=== PATIENT | female | born 1970 | race Caucasian/White ===

== ENCOUNTER 2017-07-05 19:48 | Inpatient (IN) | payer BC, OTHER ==
[2017-07-05] MEDS ORDERED: ALBUTEROL NEBULIZED 2.5 MG/3 ML INHALATION STA (19:58)
[2017-07-05] MEDS ORDERED: SODIUM CHLORIDE 0.9% 1,000 ML IV STA (20:06)
[2017-07-05] MEDS ORDERED: methylPREDNISolone SOD SUCCI 125 MG/2 ML VIAL IV STA ×2 (20:06)
[2017-07-05] MEDS ORDERED: IPRATROPIUM-ALBUTEROL 3 ML NEB INHALATION STA ×2 (20:06→20:22)
[2017-07-05] MEDS ORDERED: MAGNESIUM SULFATE-D5W PMX 2 GM in DEXTROSE/WATER 1 100ML.BAG IVPB STA (20:06)
[2017-07-05] MEDS ORDERED: LORazepam 2 MG/ML INJ IV STA (20:09)
[2017-07-05] MEDS: MAGNESIUM SULFATE-D5W PMX 1 GM in DEXTROSE/WATER 1 100ML.BAG IVPB SCH ×2 (20:11→21:14)
[2017-07-05 20:19] LABS: Basophils # (A) 0.1 k/uL (0-0.2); Basophils % (A) 1 %; Eosinophils # (A) 0.3 k/uL (0-0.7); Eosinophils % (A) 3 %; HCT 38.5 % (34.0-46.0); HGB 11.7 gm/dL (11.4-16.0); Hypochromasia Marked; Lymphocytes # (A) 1.4 k/uL (1.0-4.8); Lymphocytes % (A) 11 %; MCH 22.4 pg (25.0-35.0); MCHC 30.3 g/dL (31.0-37.0); MCV 73.8 fL (80.0-100.0); Microcytosis Slight; Monocytes # (A) 0.6 k/uL (0-1.0); Monocytes % (A) 5 %; Neutrophils # (A) 10.1 k/uL (1.3-7.7); Neutrophils % (A) 80 %; Platelet Count 378 k/uL (150-450); Poikilocytosis Slight; RBC 5.22 m/uL (3.80-5.40); RDW 15.7 % (11.5-15.5); WBC 12.7 k/uL (3.8-10.6)
--- NOTE | 2017-07-05 20:24 | ED ---
SOB HPI - General Chief Complaint: Shortness of Breath Stated Complaint: IDA Time Seen by Provider: 07/05/17 19:59 Source: patient, RN notes reviewed Mode of arrival: ambulatory Limitations: no limitations - History of Present Illness Initial Comments: This is a 46-year-old female history of asthma who is a former smoker who quit 5 years ago states she's been having difficulty breathing since yesterday. Is got progressively worse today with minimal to no improvement with her updrafts and inhalers. She denies any overt chest pain but does complain some tightness no overt fevers chills sweats cough or phlegm production this shortness of breath exertional dyspnea. No peripheral edema. No trauma reported. MD Complaint: shortness of breath - Related Data Home Medications Medication Instructions Recorded Confirmed Albuterol Sulfate [Proventil Hfa] 1 - 2 puff INHALATION Q6H PRN 11/09/13 Previous Rx's Medication Instructions Recorded Clindamycin HCl 300 mg PO Q6HR #40 cap 11/09/13 Allergies Allergy/AdvReac Type Severity Reaction Status Date / Time erythromycin base Allergy Rapid Verified 07/05/17 19:53 [Erythromycin Base] Heart Rate ibuprofen Allergy Rapid Verified 07/05/17 19:53 Heart Rate Penicillins Allergy Rash/Hives Verified 07/05/17 19:53 Sulfa (Sulfonamide Allergy Rash/Hives Verified 07/05/17 19:53 Antibiotics) Review of Systems ROS Statement: Those systems with pertinent positive or pertinent negative responses have been documented in the HPI. ROS Other: All systems not noted in ROS Statement are negative. Past Medical History Past Medical History: Asthma History of Any Multi-Drug Resistant Organisms: None Reported Past Surgical History: Section Past Psychological History: Depression Smoking Status: Former smoker Past Alcohol Use History: None Reported Past Drug Use History: None Reported General Exam - General Exam Comments Initial Comments: This is a well-developed well-nourished awake alert oriented 3 female in obvious respiratory distress Limitations: no limitations General appearance: alert, anxious, in distress Head exam: Present: atraumatic, normocephalic, normal inspection Eye exam: Present: normal appearance, PERRL, EOMI. Absent: scleral icterus, conjunctival injection, periorbital swelling ENT exam: Present: mucous membranes dry Neck exam: Present: normal inspection. Absent: tenderness, meningismus, lymphadenopathy Respiratory exam: Present: respiratory distress, wheezes, accessory muscle use, decreased breath sounds. Absent: rales, rhonchi, stridor Cardiovascular Exam: Present: normal rhythm, tachycardia, normal heart sounds. Absent: systolic murmur, diastolic murmur, rubs, gallop, clicks GI/Abdominal exam: Present: soft, normal bowel sounds. Absent: distended, tenderness, guarding, rebound, rigid Extremities exam: Present: normal inspection, full ROM, normal capillary refill. Absent: tenderness, pedal edema, joint swelling, calf tenderness Back exam: Present: normal inspection Neurological exam: Present: alert, oriented X3, CN II-XII intact Psychiatric exam: Present: normal affect, anxious Skin exam: Present: warm, dry, intact, normal color. Absent: rash Course Vital Signs 07/05/17 07/05/17 07/05/17 19:51 20:09 20:12 Temperature 100.0 F H Pulse Rate 115 H 110 H 111 H Respiratory 34 H 40 H Rate Blood Pressure 165/87 219/113 O2 Sat by Pulse 91 L 96 Oximetry 07/05/17 07/05/17 07/05/17 20:24 20:25 20:32 Temperature Pulse Rate 114 H 114 H 119 H Respiratory 30 H Rate Blood Pressure 162/99 O2 Sat by Pulse 100 Oximetry 07/05/17 21:15 Temperature 99.4 F Pulse Rate 106 H Respiratory 34 H Rate Blood Pressure 131/73 O2 Sat by Pulse 100 Oximetry - Reevaluation(s) Reevaluation #1: 07/05/17 20:22 Initial reevaluation reveals her blood pressure is improved to 162/99 she is markedly increased wheezing which does indicate increased aeration. Chest x- ray was just performed shows no definite evidence of infiltrate no pneumothorax the mediastinum is within normal limits. Reevaluation #2: 07/05/17 21:40 The patient further examination is much improved with increased aeration and diminished wheezing she feels much improved her blood pressure is becoming more normalized. Medical Decision Making - Medical Decision Making I did discuss Pfizer the patient family members were present patient be admitted for continued inpatient treatment she is ready a remarkably improved but still requires further treatment I did discuss the case with Jesse from the hospitalist group Dr. Paris's group will be consulted - Lab Data Result diagrams: 07/05/17 20:05 07/05/17 20:05 Lab Results 07/05/17 07/05/17 07/05/17 Range/Units 20:05 20:05 20:05 WBC 12.7 H (3.8-10.6) k/uL RBC 5.22 (3.80-5.40) m/uL Hgb 11.7 (11.4-16.0) gm/dL Hct 38.5 (34.0-46.0) % MCV 73.8 L (80.0-100.0) fL MCH 22.4 L (25.0-35.0) pg MCHC 30.3 L (31.0-37.0) g/dL RDW 15.7 H (11.5-15.5) % Plt Count 378 (150-450) k/uL Neutrophils % 80 % Lymphocytes % 11 % Monocytes % 5 % Eosinophils % 3 % Basophils % 1 % Neutrophils # 10.1 H (1.3-7.7) k/uL Lymphocytes # 1.4 (1.0-4.8) k/uL Monocytes # 0.6 (0-1.0) k/uL Eosinophils # 0.3 (0-0.7) k/uL Basophils # 0.1 (0-0.2) k/uL Hypochromasia Marked Poikilocytosis Slight Microcytosis Slight PT (9.0-12.0) sec INR (<1.2) APTT (22.0-30.0) sec D-Dimer (<0.60) mg/L FEU Sodium 141 (137-145) mmol/L Potassium 4.0 (3.5-5.1) mmol/L Chloride 102 (98-107) mmol/L Carbon Dioxide 24 (22-30) mmol/L Anion Gap 15 mmol/L BUN 10 (7-17) mg/dL Creatinine 0.60 (0.52-1.04) mg/dL Est GFR (CKD-EPI)AfAm >90 (>60 ml/min/1.73 sqM) Est GFR (CKD-EPI)NonAf >90 (>60 ml/min/1.73 sqM) Glucose 118 H (74-99) mg/dL Plasma Lactic Acid Adrian (0.7-2.0) mmol/L Calcium 9.7 (8.4-10.2) mg/dL Magnesium 2.0 (1.6-2.3) mg/dL Total Bilirubin 0.5 (0.2-1.3) mg/dL AST 26 (14-36) U/L ALT 27 (9-52) U/L Alkaline Phosphatase 103 (38-126) U/L Total Creatine Kinase 79 (30-135) U/L CK-MB (CK-2) 1.1 (0.0-2.4) ng/mL CK-MB (CK-2) Rel Index 1.4 Troponin I <0.012 (0.000-0.034) ng/mL NT-Pro-B Natriuret Pep pg/mL Total Protein 8.2 (6.3-8.2) g/dL Albumin 4.5 (3.5-5.0) g/dL Influenza Type A RNA (Not Detectd) Influenza Type B (PCR) (Not Detectd) 07/05/17 07/05/17 07/05/17 Range/Units 20:05 20:05 20:05 WBC (3.8-10.6) k/uL RBC (3.80-5.40) m/uL Hgb (11.4-16.0) gm/dL Hct (34.0-46.0) % MCV (80.0-100.0) fL MCH (25.0-35.0) pg MCHC (31.0-37.0) g/dL RDW (11.5-15.5) % Plt Count (150-450) k/uL Neutrophils % % Lymphocytes % % Monocytes % % Eosinophils % % Basophils % % Neutrophils # (1.3-7.7) k/uL Lymphocytes # (1.0-4.8) k/uL Monocytes # (0-1.0) k/uL Eosinophils # (0-0.7) k/uL Basophils # (0-0.2) k/uL Hypochromasia Poikilocytosis Microcytosis PT 9.7 (9.0-12.0) sec INR 1.0 (<1.2) APTT 22.1 (22.0-30.0) sec D-Dimer 0.50 (<0.60) mg/L FEU Sodium (137-145) mmol/L Potassium (3.5-5.1) mmol/L Chloride (98-107) mmol/L Carbon Dioxide (22-30) mmol/L Anion Gap mmol/L BUN (7-17) mg/dL Creatinine (0.52-1.04) mg/dL Est GFR (CKD-EPI)AfAm (>60 ml/min/1.73 sqM) Est GFR (CKD-EPI)NonAf (>60 ml/min/1.73 sqM) Glucose (74-99) mg/dL Plasma Lactic Acid Adrian 1.5 (0.7-2.0) mmol/L Calcium (8.4-10.2) mg/dL Magnesium (1.6-2.3) mg/dL Total Bilirubin (0.2-1.3) mg/dL AST (14-36) U/L ALT (9-52) U/L Alkaline Phosphatase (38-126) U/L Total Creatine Kinase (30-135) U/L CK-MB (CK-2) (0.0-2.4) ng/mL CK-MB (CK-2) Rel Index Troponin I (0.000-0.034) ng/mL NT-Pro-B Natriuret Pep 65 pg/mL Total Protein (6.3-8.2) g/dL Albumin (3.5-5.0) g/dL Influenza Type A RNA (Not Detectd) Influenza Type B (PCR) (Not Detectd) 07/05/17 Range/Units 20:30 WBC (3.8-10.6) k/uL RBC (3.80-5.40) m/uL Hgb (11.4-16.0) gm/dL Hct (34.0-46.0) % MCV (80.0-100.0) fL MCH (25.0-35.0) pg MCHC (31.0-37.0) g/dL RDW (11.5-15.5) % Plt Count (150-450) k/uL Neutrophils % % Lymphocytes % % Monocytes % % Eosinophils % % Basophils % % Neutrophils # (1.3-7.7) k/uL Lymphocytes # (1.0-4.8) k/uL Monocytes # (0-1.0) k/uL Eosinophils # (0-0.7) k/uL Basophils # (0-0.2) k/uL Hypochromasia Poikilocytosis Microcytosis PT (9.0-12.0) sec INR (<1.2) APTT (22.0-30.0) sec D-Dimer (<0.60) mg/L FEU Sodium (137-145) mmol/L Potassium (3.5-5.1) mmol/L Chloride (98-107) mmol/L Carbon Dioxide (22-30) mmol/L Anion Gap mmol/L BUN (7-17) mg/dL Creatinine (0.52-1.04) mg/dL Est GFR (CKD-EPI)AfAm (>60 ml/min/1.73 sqM) Est GFR (CKD-EPI)NonAf (>60 ml/min/1.73 sqM) Glucose (74-99) mg/dL Plasma Lactic Acid Adrian (0.7-2.0) mmol/L Calcium (8.4-10.2) mg/dL Magnesium (1.6-2.3) mg/dL Total Bilirubin (0.2-1.3) mg/dL AST (14-36) U/L ALT (9-52) U/L Alkaline Phosphatase (38-126) U/L Total Creatine Kinase (30-135) U/L CK-MB (CK-2) (0.0-2.4) ng/mL CK-MB (CK-2) Rel Index Troponin I (0.000-0.034) ng/mL NT-Pro-B Natriuret Pep pg/mL Total Protein (6.3-8.2) g/dL Albumin (3.5-5.0) g/dL Influenza Type A RNA Not Detected (Not Detectd) Influenza Type B (PCR) Not Detected (Not Detectd) - EKG Data -: EKG Interpreted by Me (Sinus tachycardia with a rate of 111. Interval 182 QRS duration 68 daily s) - Radiology Data Radiology results: image reviewed (Review the x-ray shows no definite acute evidence of infiltrate no pneumothorax mediastinum normal) Critical Care Time Critical Care Time: Yes Critical Care Time: 37 minutes of critical care time which includes initial presentation with history physical labs x-rays constant bedside attention for the first approximately 15-20 minutes. Multiple re-evaluations patient. Discussed with the patient family regarding findings discussed with the [facility] service admission orders and documentation of the above. Disposition Clinical Impression: Asthma with status asthmaticus, Adult respiratory distress syndrome, Acute respiratory failure, Febrile illness, acute, Single episode of hypertension Disposition: ADMITTED IP TO THIS HOSP Condition: Stable Referrals: None,Stated [REFERRING] - 1-2 days
[2017-07-05] MEDS ORDERED: TERBUTALINE 1 MG/ML VIAL SQ STA (20:26)
[2017-07-05 20:28] LABS: D-Dimer 0.5 mg/L FEU (<0.60)
[2017-07-05 20:30] LABS: ALT 27 U/L (9-52); AST 26 U/L (14-36); Albumin 4.5 g/dL (3.5-5.0); Alkaline Phosphatase 103 U/L (38-126); Anion Gap 15 mmol/L; Blood Urea Nitrogen 10 mg/dL (7-17); Calcium 9.7 mg/dL (8.4-10.2); Carbon Dioxide 24 mmol/L (22-30); Chloride 102 mmol/L (98-107); Glucose 118 mg/dL (74-99); Sodium 141 mmol/L (137-145); Total Bilirubin 0.5 mg/dL (0.2-1.3); Total Protein 8.2 g/dL (6.3-8.2)
[2017-07-05 20:33] LABS: Partial Thromboplastin Time 22.1 sec (22.0-30.0); Prothrombin Time 9.7 sec (9.0-12.0)
[2017-07-05 20:43] LABS: Creatine Kinase 79 U/L (30-135)
--- NOTE | 2017-07-05 20:53 | XR ---
EXAMINATION TYPE: XR chest 1V DATE OF EXAM: 07/05/2017 COMPARISON: Prior chest x-ray 01/13/2014 HISTORY: Difficulty breathing, asthma TECHNIQUE: Single frontal view of the chest is obtained. FINDINGS: There is no focal air space opacity, pleural effusion, or pneumothorax seen. The cardiac silhouette size is within normal limits. There are overlying cardiac leads. The osseous structures are intact. IMPRESSION: No acute process.
[2017-07-05 20:56] LABS: Creatine Kinase MB 1.1 ng/mL (0.0-2.4); Troponin I <0.012 ng/mL (0.000-0.034)
[2017-07-05] MEDS ORDERED: cefTRIAXone IN SWFI 1,000 MG/10 ML SYRINGE IVP STA (21:50)
[2017-07-05] MEDS: IPRATROPIUM-ALBUTEROL 3 ML NEB INHALATION PRN (23:21)
[2017-07-06] MEDS: IPRATROPIUM-ALBUTEROL 3 ML NEB INHALATION PRN ×4 (03:48→15:03)
[2017-07-06] MEDS: methylPREDNISolone SOD SUCCI 125 MG/2 ML VIAL IV SCH ×2 (13:14→13:50)
[2017-07-06] MEDS: SODIUM CHLORIDE 0.9% 1,000 ML IV SCH ×2 (13:14→13:55)
[2017-07-06 15:41] VITALS: BP 125/83; PULSE 101; RESP 18; TEMP 97.7
--- NOTE | 2017-07-06 15:47 | P.DS ---
Providers Date of admission: 07/05/17 21:47 Attending physician: Hillary Silverio Consults: 07/05/17 21:47 Consult Physician Routine Consulting Provider: Danis Paris Consult Reason/Comments: Acute asthma exacerbation with status asthmaticus, acute respiratory failur Do you want consulting provider notified?: Yes Primary care physician: Melissa Estradayaakov [facility] Course: Please refer to my HPI Patient Condition at Discharge: Stable Plan - Discharge Summary New Discharge Prescriptions: New Albuterol Inhaler [Ventolin Hfa Inhaler] 1 - 2 puff INHALATION Q6HR PRN #1 inhaler PRN Reason: Shortness Of Breath Or Wheezing Budesonide-Formot 160-4.5 Mcg [Symbicort 160-4.5 Mcg Inhaler] 2 puff INHALATION BID #1 inhaler predniSONE 10 mg PO DAILY #30 tab Doxycycline Monohydrate [Monodox] 100 mg PO Q12HR #10 cap Discharge Medication List Albuterol Inhaler [Ventolin Hfa Inhaler] 1 - 2 puff INHALATION Q6HR PRN #1 inhaler 07/06/17 [Rx] Budesonide-Formot 160-4.5 Mcg [Symbicort 160-4.5 Mcg Inhaler] 2 puff INHALATION BID #1 inhaler 07/06/17 [Rx] Doxycycline Monohydrate [Monodox] 100 mg PO Q12HR #10 cap 07/06/17 [Rx] predniSONE 10 mg PO DAILY #30 tab 07/06/17 [Rx] Follow up Appointment(s)/Referral(s): Melissa Murillo MD [Primary Care Provider] - 1 Week None,Stated [REFERRING] - 1-2 days Discharge Disposition: HOME SELF-CARE
--- NOTE | 2017-07-06 15:47 | P.HPIM ---
History of Present Illness 46-year-old female came in with comments of severe shortness of breath started yesterday evening and the wheezing. Patient does have history of asthma multiple seasonal ALLERGIES. Patient the head smoking history quit 5 years ago patient denied any fever chills patient is comparing of cough with greenish sputum production chest x-ray did not show any pneumonia. Patient is doing much better today normal air entry into bilateral lung cabrera no wheezing was appreciated will ablate the patient if she is saturating well vitals are stable patient will be discharged on weaning dose of prednisone Symbicort albuterol will also give her docs cycling because of the greenish sputum. Patient will follow with PCP as an outpatient. Review of Systems REVIEW OF SYSTEMS: CONSTITUTIONAL: No fever, no malaise, no fatigue. HEENT: No recent visual problems or hearing problems. Denied any sore throat. CARDIOVASCULAR: No chest pain, orthopnea, PND, no palpitations, no syncope. PULMONARY: no hemoptysis. GASTROINTESTINAL: No diarrhea, no nausea, no vomiting, no abdominal pain. Normoactive bowel sounds. NEUROLOGICAL: No headaches, no weakness, no numbness. HEMATOLOGICAL: Denies any bleeding or petechiae. GENITOURINARY: Denies any burning micturition, frequency, or urgency. MUSCULOSKELETAL/RHEUMATOLOGICAL: Denies any joint pain, swelling, or any muscle pain. ENDOCRINE: Denies any polyuria or polydipsia. The rest of the 14-point review of systems is negative. Past Medical History Past Medical History: Asthma History of Any Multi-Drug Resistant Organisms: None Reported Past Surgical History: Section Past Psychological History: Depression Smoking Status: Former smoker Past Alcohol Use History: None Reported Past Drug Use History: None Reported Medications and Allergies Home Medications Medication Instructions Recorded Confirmed Type Albuterol Inhaler [Ventolin Hfa 1 - 2 puff INHALATION Q6HR PRN #1 07/06/17 Rx Inhaler] inhaler Budesonide-Formot 160-4.5 Mcg 2 puff INHALATION BID #1 inhaler 07/06/17 Rx [Symbicort 160-4.5 Mcg Inhaler] Doxycycline Monohydrate [Monodox] 100 mg PO Q12HR #10 cap 07/06/17 Rx predniSONE 10 mg PO DAILY #30 tab 07/06/17 Rx Allergies Allergy/AdvReac Type Severity Reaction Status Date / Time erythromycin base Allergy Rapid Verified 07/06/17 07:43 [Erythromycin Base] Heart Rate ibuprofen Allergy Rapid Verified 07/06/17 07:43 Heart Rate Penicillins Allergy Rash/Hives Verified 07/06/17 07:43 Sulfa (Sulfonamide Allergy Rash/Hives Verified 07/06/17 07:43 Antibiotics) Physical Exam Vitals: Vital Signs Temp Pulse Pulse Resp BP BP Pulse Ox 07/06/17 15:40 97.7 F 101 H 18 125/83 96 07/06/17 15:28 96.6 F L 117 H 20 150/95 95 07/06/17 15:14 92 07/06/17 15:03 92 07/06/17 13:07 97.9 F 90 18 123/77 97 07/06/17 11:19 99 07/06/17 11:10 99 22 108/66 98 07/06/17 11:06 90 07/06/17 07:45 90 16 115/70 100 07/06/17 07:38 91 07/06/17 07:26 89 07/06/17 06:26 83 119/69 96 07/06/17 04:49 92 18 114/68 97 07/06/17 04:02 88 07/06/17 03:49 90 07/06/17 02:36 96 18 120/73 07/06/17 01:10 97.7 F 07/06/17 00:44 95 30 H 116/75 98 07/05/17 23:33 95 07/05/17 23:31 97 32 H 140/92 98 07/05/17 23:22 101 H 07/05/17 21:15 99.4 F 106 H 34 H 131/73 100 07/05/17 20:32 119 H 30 H 162/99 100 07/05/17 20:25 114 H 07/05/17 20:24 114 H 07/05/17 20:12 111 H 07/05/17 20:09 110 H 40 H 219/113 96 07/05/17 19:51 100.0 F H 115 H 34 H 165/87 91 L Intake and Output 07/06/17 07/06/17 07/06/17 06:59 14:59 22:59 Intake Total 800 Balance 800 Intake: IV 800 Sodium Chloride 0.9% 1, 800 000 ml @ 100 mls/hr IV . Q10H [facility] Rx#:[id number] PHYSICAL EXAMINATION: GENERAL: The patient is alert and oriented x3, not in any acute distress. Well developed, well nourished. HEENT: Pupils are round and equally reacting to light. EOMI. No scleral icterus. No conjunctival pallor. Normocephalic, atraumatic. No pharyngeal erythema. No thyromegaly. CARDIOVASCULAR: S1 and S2 present. No murmurs, rubs, or gallops. PULMONARY: Chest is clear to auscultation, no wheezing or crackles. ABDOMEN: Soft, nontender, nondistended, normoactive bowel sounds. No palpable organomegaly. MUSCULOSKELETAL: No joint swelling or deformity. EXTREMITIES: No cyanosis, clubbing, or pedal edema. NEUROLOGICAL: Gross neurological examination did not reveal any focal deficits. SKIN: No rashes. Results CBC & Chem 7: 07/05/17 20:05 07/05/17 20:05 Labs: Abnormal Lab Results - Last 24 Hours (Table) 07/05/17 07/05/17 Range/Units 20:05 20:05 WBC 12.7 H (3.8-10.6) k/uL MCV 73.8 L (80.0-100.0) fL MCH 22.4 L (25.0-35.0) pg MCHC 30.3 L (31.0-37.0) g/dL RDW 15.7 H (11.5-15.5) % Neutrophils # 10.1 H (1.3-7.7) k/uL Glucose 118 H (74-99) mg/dL Assessment and Plan Plan: 1 status asthmaticus are acute exacerbation of asthma ration to appears to have chronic intermittent asthma. Patient is clinically doing well management as mentioned above patient will be discharged today on oral weaning dose of steroids. -Remote history of nicotine use -Bacterial bronchitis for which patient will be discharged on doxycycline
== END 2017-07-06 18:38 | disposition home or self-care (01) | DRG 203 ==
LOC: EC 19:48 → 6SEL 21:47
PROVIDERS: ADMIT Internal Medicine; ATTEND Internal Medicine
DX: J45.22 Mild intermittent asthma with status asthmaticus (principal); F32.9 Major depressive disorder, single episode, unspecified; I10 Essential (primary) hypertension; J40 Bronchitis, not specified as acute or chronic; J30.2 Other seasonal allergic rhinitis; Z79.51 Long term (current) use of inhaled steroids; Z79.899 Other long term (current) drug therapy; Z87.891 Personal history of nicotine dependence; Z88.6 Allergy status to analgesic agent; Z88.1 Allergy status to other antibiotic agents; Z88.0 Allergy status to penicillin; Z88.2 Allergy status to sulfonamides
CPT/HCPCS: 36415; 71045; 80053; 82550; 82553; 83605; 83735; 83880; 84484; 85025; 85379; 85610; 85730; 87040; 87502; 93005; 94640; 94660; 96361; 96365; 96366; 96372; 96374; 96375; 96376; 99291

== ENCOUNTER 2020-07-27 08:29 | Emergency (ER) | payer BC, OTHER ==
[2020-07-27 08:33] VITALS: BP 146/93; PULSE 91; RESP 18; TEMP 97.9
--- NOTE | 2020-07-27 08:51 | ED ---
URI HPI - General Chief Complaint: Upper Respiratory Infection Stated Complaint: Fever, headache, sore throat Time Seen by Provider: 07/27/20 08:33 Source: patient, RN notes reviewed Mode of arrival: ambulatory Limitations: no limitations - History of Present Illness Initial Comments: 49-year-old female presents emergency Department chief complaint of covid exposure. Patient states her father who is in the household tested positive on Friday. She started last sent with fever chills headache sore throat and nasal congestion. Patient is concerned. Patient does have a history of asthma denies any difficulty breathing no GI symptoms. - Related Data Previous Rx's Medication Instructions Recorded Albuterol Inhaler (Mhu) [Ventolin 1 - 2 puff INHALATION Q6HR PRN #1 07/06/17 Hfa Inhaler (Mhu)] inhaler Budesonide-Formot 160-4.5 Mcg 2 puff INHALATION BID #1 inhaler 07/06/17 [Symbicort 160-4.5 Mcg Inhaler] Doxycycline Monohydrate [Monodox] 100 mg PO Q12HR #10 cap 07/06/17 predniSONE 10 mg PO DAILY #30 tab 07/06/17 Allergies Allergy/AdvReac Type Severity Reaction Status Date / Time erythromycin base Allergy Rapid Verified 07/27/20 08:32 [Erythromycin Base] Heart Rate ibuprofen Allergy Rapid Verified 07/27/20 08:32 Heart Rate Penicillins Allergy Rash/Hives Verified 07/27/20 08:32 Sulfa (Sulfonamide Allergy Rash/Hives Verified 07/27/20 08:32 Antibiotics) Review of Systems ROS Statement: Those systems with pertinent positive or pertinent negative responses have been documented in the HPI. ROS Other: All systems not noted in ROS Statement are negative. Past Medical History Past Medical History: Asthma History of Any Multi-Drug Resistant Organisms: None Reported Past Surgical History: Section Past Psychological History: Depression Smoking Status: Never smoker Past Alcohol Use History: None Reported Past Drug Use History: None Reported General Exam Limitations: no limitations General appearance: alert, in no apparent distress Head exam: Present: atraumatic, normocephalic, normal inspection Eye exam: Present: normal appearance, PERRL, EOMI. Absent: scleral icterus, conjunctival injection, periorbital swelling ENT exam: Present: normal exam, normal oropharynx, mucous membranes moist, TM's normal bilaterally Neck exam: Present: normal inspection, full ROM. Absent: tenderness, meningismus, lymphadenopathy Respiratory exam: Present: normal lung sounds bilaterally. Absent: respiratory distress, wheezes, rales, rhonchi, stridor Cardiovascular Exam: Present: regular rate, normal rhythm, normal heart sounds. Absent: systolic murmur, diastolic murmur, rubs, gallop, clicks Course Vital Signs 07/27/20 08:30 Temperature 97.9 F Pulse Rate 91 Respiratory 18 Rate Blood Pressure 146/93 O2 Sat by Pulse 97 Oximetry Medical Decision Making - Medical Decision Making Patient has positive for Covid 19. Patient does not qualify for monoclonal antibodies patient will be discharged stable condition. - Lab Data Lab Results 07/27/20 Range/Units 08:41 Coronavirus (PCR) Detected A (Not Detectd) Disposition Clinical Impression: COVID-19 Disposition: HOME SELF-CARE Condition: Stable Instructions (If sedation given, give patient instructions): Coronavirus Disease 2019 (COVID-19) Additional Instructions: Please return to the Emergency Department if symptoms worsen or any other concerns. Is patient prescribed a controlled substance at d/c from ED?: No Referrals: None,Stated [Primary Care Provider] - 1-2 days Time of Disposition: 09:15
== END 2020-07-27 09:43 | disposition home or self-care (01) ==
LOC: EC 08:29
DX: U07.1 COVID-19 (principal); J45.909 Unspecified asthma, uncomplicated; F32.9 Major depressive disorder, single episode, unspecified; Z88.0 Allergy status to penicillin
CPT/HCPCS: 87635; 99284

== ENCOUNTER 2021-08-24 14:32 | Emergency (ER) | payer BC ==
[2021-08-24 14:42] VITALS: BP 150/88; PULSE 76; RESP 18; TEMP 98.1
[2021-08-24] MEDS ORDERED: ACETAMINOPHEN TAB 500 MG TAB PO STA (15:28)
--- NOTE | 2021-08-24 15:44 | XR ---
Right wrist: HISTORY: Pain. COMPARISON: None. TECHNIQUE: 4 views the right wrist are obtained. FINDINGS: There is no fracture, dislocation, intraosseous or intra-articular abnormality. There is no radiopaqu e foreign body or abnormal soft tissue calcification. IMPRESSION: No significant abnormality seen.
--- NOTE | 2021-08-24 15:48 | ED ---
Upper Extremity HPI - General Chief Complaint: Extremity Injury, Upper Stated Complaint: Right Arm Injury Time Seen by Provider: 08/24/21 15:19 Source: patient Mode of arrival: ambulatory Limitations: no limitations - History of Present Illness Initial Comments: Patient is a 50-year-old female who presents to the emergency department with right wrist pain. Patient states she was trying to cut a hole in a fabric softener bottle today when she accidentally hit her wrist on the bottle. Patient endorses pain over the pinky side of the right wrist. She admits to mild pinky numbness. Patient has not taken any medication for pain. She has no other concerns. - Related Data Previous Rx's Medication Instructions Recorded Albuterol Inhaler (Mhu) [Ventolin 1 - 2 puff INHALATION Q6HR PRN #1 07/06/17 Hfa Inhaler (Mhu)] inhaler Budesonide-Formot 160-4.5 Mcg 2 puff INHALATION BID #1 inhaler 07/06/17 [Symbicort 160-4.5 Mcg Inhaler] Doxycycline Monohydrate [Monodox] 100 mg PO Q12HR #10 cap 07/06/17 predniSONE 10 mg PO DAILY #30 tab 07/06/17 Allergies Allergy/AdvReac Type Severity Reaction Status Date / Time erythromycin base Allergy Rapid Verified 07/27/20 08:32 [Erythromycin Base] Heart Rate ibuprofen Allergy Rapid Verified 07/27/20 08:32 Heart Rate Penicillins Allergy Rash/Hives Verified 07/27/20 08:32 Sulfa (Sulfonamide Allergy Rash/Hives Verified 07/27/20 08:32 Antibiotics) Review of Systems ROS Statement: Those systems with pertinent positive or pertinent negative responses have been documented in the HPI. ROS Other: All systems not noted in ROS Statement are negative. Past Medical History Past Medical History: Asthma History of Any Multi-Drug Resistant Organisms: None Reported Past Surgical History: Section Past Psychological History: Depression Smoking Status: Never smoker Past Alcohol Use History: None Reported Past Drug Use History: None Reported General Exam Limitations: no limitations General appearance: alert, in no apparent distress Head exam: Present: atraumatic, normocephalic, normal inspection Eye exam: Present: normal appearance, PERRL, EOMI. Absent: scleral icterus, conjunctival injection, periorbital swelling Respiratory exam: Present: normal lung sounds bilaterally. Absent: respiratory distress, wheezes, rales, rhonchi, stridor Cardiovascular Exam: Present: regular rate, normal rhythm, normal heart sounds. Absent: systolic murmur, diastolic murmur, rubs, gallop, clicks GI/Abdominal exam: Present: soft, normal bowel sounds. Absent: distended, tenderness, guarding, rebound, rigid Right Hand Wrist exam: Present: full ROM, tenderness (Styloid process of ulna), swelling (Minimal around styloid process of ulna). Absent: laceration, deformity, crepitus, dislocation, erythema Neuro motor exam: Present: wrist extension intact, thumb opposition intact, thumb IP flexion intact, thumb adduction intact, fingers 2-5 abduction intact Neurosensory exam: Present: radial nerve intact, ulnar nerve intact, median nerve intact Vascular: Present: normal capillary refill, radial pulse, brachial pulse, ulnar pulse. Absent: vascular compromise, Pallo Neurological exam: Present: alert, oriented X3, CN II-XII intact Psychiatric exam: Present: normal affect, normal mood Skin exam: Present: warm, dry, intact, normal color. Absent: rash Course Vital Signs 08/24/21 14:40 Temperature 98.1 F Pulse Rate 76 Respiratory 18 Rate Blood Pressure 150/88 O2 Sat by Pulse 98 Oximetry Medical Decision Making - Medical Decision Making This is a 50-year-old female who presents to right wrist pain. Thorough history and examination were performed. Patient endorses pain over the styloid process of the right ulna. There is minimal swelling with no erythema or obvious deformity. No hand pain including snuffbox tenderness. Patient is neurovascularly intact. Full range of motion. Right wrist x-ray was obtained which shows no abnormality. The wrist was wrapped in Teo bandage for comfort. RICE education was performed. Patient will be discharged with instruction to follow up with her primary care provider. Return parameters discussed. Patient verbalizes understanding and is agreeable to this plan. Dr. Betancourt is my attending. Disposition Clinical Impression: Right wrist pain Disposition: HOME SELF-CARE Condition: Good Instructions (If sedation given, give patient instructions): Wrist Injury (ED) Additional Instructions: Please rest, ice, and elevate the right wrist to increase healing. You may keep the Teo bandage on for comfort and take it off when he feel necessary. Take Tylenol for pain. Return to the emergency department if you experience new, concerning, or worsening symptoms. Is patient prescribed a controlled substance at d/c from ED?: No Referrals: None,Stated [Primary Care Provider] - 1-2 days Time of Disposition: 16:00 Decision Time: 16:01
== END 2021-08-24 16:22 | disposition home or self-care (01) ==
LOC: EC 14:32
DX: M25.531 Pain in right wrist (principal); J45.909 Unspecified asthma, uncomplicated; Z88.0 Allergy status to penicillin; Z88.1 Allergy status to other antibiotic agents; Z88.6 Allergy status to analgesic agent; Z88.2 Allergy status to sulfonamides

== ENCOUNTER 2022-01-11 14:19 | Emergency (ER) | payer BC ==
[2022-01-11] MEDS ORDERED: ACETAMINOPHEN TAB 500 MG TAB PO STA (15:24)
--- NOTE | 2022-01-11 15:49 | XR ---
EXAMINATION TYPE: XR knee complete RT DATE OF EXAM: 01/11/2022 CLINICAL HISTORY: Pain and popping noise after walking up stairs injury TECHNIQUE: Three views of the right knee are obtained. COMPARISON: None. FINDINGS: There is no acute fracture/dislocation evident in right knee. Moderate narrowing with mild spurring patellofemoral compartment. Mild to moderate narrowing medial tibiofemoral compartment. In creased soft tissue density suprapatellar bursa suspicious for small to moderate size joint effusion. IMPRESSION: As above.
--- NOTE | 2022-01-11 16:22 | ED ---
Extremity Problem HPI - General Chief complaint: Extremity Problem,Nontraumatic Stated complaint: knee pain Time Seen by Provider: 01/11/22 14:45 Source: patient Mode of arrival: wheelchair - History of Present Illness Initial comments: 51-year-old female presents emergency room with right knee pain. States that she was ambulating 30 minutes prior to hospital arrival when she felt a pop in the posterior aspect of her right knee. She has had difficulty weightbearing due to the pain. Denies previous injury. Pain radiates up and down the leg. No numbness, tingling or weakness. She has not taken any medications for her symptoms. Denies any swelling. No history of DVT or PE. No chest pain or shortness of breath. She denies fevers. No other alleviating, precipitating or modifying factors - Related Data Previous Rx's Medication Instructions Recorded Albuterol Inhaler [Ventolin Hfa 1 - 2 puff INHALATION Q6HR PRN #1 07/06/17 Inhaler] inhaler Budesonide-Formot 160-4.5 Mcg 2 puff INHALATION BID #1 inhaler 07/06/17 [Symbicort 160-4.5 Mcg Inhaler] Doxycycline Monohydrate [Monodox] 100 mg PO Q12HR #10 cap 07/06/17 predniSONE 10 mg PO DAILY #30 tab 07/06/17 Allergies Allergy/AdvReac Type Severity Reaction Status Date / Time erythromycin base Allergy Rapid Verified 01/11/22 14:48 [Erythromycin Base] Heart Rate ibuprofen Allergy Rapid Verified 01/11/22 14:48 Heart Rate Penicillins Allergy Rash/Hives Verified 01/11/22 14:48 Sulfa (Sulfonamide Allergy Rash/Hives Verified 01/11/22 14:48 Antibiotics) Review of Systems ROS Statement: Those systems with pertinent positive or pertinent negative responses have been documented in the HPI. ROS Other: All systems not noted in ROS Statement are negative. Past Medical History Past Medical History: Asthma History of Any Multi-Drug Resistant Organisms: None Reported Past Surgical History: Section Past Psychological History: Depression Smoking Status: Never smoker Past Alcohol Use History: None Reported Past Drug Use History: None Reported General Exam General appearance: alert, in no apparent distress Head exam: Present: atraumatic, normocephalic, normal inspection Extremities exam: Present: tenderness (2+ DP and PT pulses. Intact sensation over the medial, lateral dorsal aspects of the lower extremities), other (Mild joint effusion to the right knee. Tenderness to palpation of the popliteal fossa. No calf pain. No hip instability. 5 out of 5 muscle strength in the bilateral lower extremity to include hip flexors, knee extensors, ankle and great toe dorsiflexors and foot plantar flexors) Course Vital Signs 01/11/22 01/11/22 14:45 16:41 Temperature 98.3 F 98.4 F Pulse Rate 81 65 Respiratory 18 16 Rate Blood Pressure 175/107 166/92 O2 Sat by Pulse 98 98 Oximetry Medical Decision Making - Medical Decision Making Upon arrival patient was placed into room 30. Thorough history and physical exam was performed. X-rays are performed of the patient's right knee. She is given a dose of Tylenol. X-ray does demonstrate an effusion. Discuss results with the patient and concern for internal derangement. Patient continues to have full normal range of motion of the right lower extremity however it is painful. Patient placed in knee immobilizer and will be given a prescription for crutches. She is to take Tylenol as needed at home for pain control. She'll be given follow up information for the orthopedic office. Instructed to rest, ice and elevate. Weight-bear as tolerated. Return for any new or worsening symptoms. Patient was agreeable to the plan is discharged home in stable condition Disposition Clinical Impression: Right knee pain, Internal derangement of knee Disposition: HOME SELF-CARE Condition: Stable Instructions (If sedation given, give patient instructions): Knee Pain (ED) Additional Instructions: Please call and make an appointment with the orthopedic associates. Ambulate with the crutches. Take Tylenol for pain. Return for any new or worsening symptoms Is patient prescribed a controlled substance at d/c from ED?: No Referrals: None,Stated [Primary Care Provider] - 1-2 days Kriss Thompson DO [Doctor of Osteopathic Medicine] - 1-2 days Time of Disposition: 16:20
[2022-01-11 16:45] VITALS: BP 166/92; PULSE 65; RESP 16; TEMP 98.4
== END 2022-01-11 16:44 | disposition home or self-care (01) ==
LOC: EC 14:19
DX: M23.91 Unspecified internal derangement of right knee (principal); J45.909 Unspecified asthma, uncomplicated; Z88.1 Allergy status to other antibiotic agents; Z88.6 Allergy status to analgesic agent; Z88.0 Allergy status to penicillin; Z88.2 Allergy status to sulfonamides; Z79.51 Long term (current) use of inhaled steroids
CPT/HCPCS: 99283